=== PATIENT | female | born 1990 | race American Indian/Alaskan Native ===

== ENCOUNTER 2016-06-26 11:30 | Inpatient (IN) | payer MEDICAID, OTHER ==
--- NOTE | 2016-07-21 08:30 | History and Physical Report ---
History of Present Illness Date of examination: 07/21/16 Chief complaint: scheduled section and bilateral tubal ligation History of present illness: Pt is a 26 year old -Nepalese female ELIA 07/29/16 at 39w0d who presents for scheduled section with bilateral tubal ligation secondary to previous x 2 and undesired fertility. She reports irregular contractions, and denies vaginal bleeding or leakage of fluid. She has had care at [facility] since 27wks complicated by late entry to care, glucose intolerance with normal 3 hr GTT. Past History Past Medical History: no pertinent history Past Surgical History: section (2011, 2015) Family/Genetic History: cancer Social history: no significant social history - Obstetrical History Expected Date of Delivery: 07/29/16 Actual Gestation: 38 Week(s) 6 Day(s) : 3 Para: 2 Hx # Term Pregnancies: 2 Number of Pregnancies: 0 Spontaneous Abortions: 0 Induced : 0 Number of Living Children: 2 Medications and Allergies Allergies Allergy/AdvReac Type Severity Reaction Status Date / Time No Known Allergies Allergy Unverified 03/26/16 16:16 Home Medications Medication Instructions Recorded Confirmed Last Taken Type Ferrous Sulfate [Feosol 325 MG tab] 325 mg PO BID #60 tablet 06/28/15 Unknown Rx Ibuprofen [Motrin 800 MG tab] 800 mg PO Q8H PRN #30 tablet 06/28/15 Unknown Rx Vit-Fe Fumar-FA [ 1 each PO QDAY #30 tablet 06/28/15 Unknown Rx Vitamin] oxyCODONE /ACETAMINOPHEN [Percocet 1 tab PO Q6H PRN #30 tablet 06/28/15 Unknown Rx 5/325 mg] Tobramycin 0.3% [Tobrex] 1 drop OD Q8HR #20 ml 03/26/16 Unknown Rx Review of Systems All systems: negative - Physical Exam Breasts: Positive: deferred Cardiovascular: Regular rate Lungs: Positive: Clear to auscultation Abdomen: Positive: soft (gravid ) Uterus: Positive: enlarged (gravid ) Extremities: Positive: normal - Obstetrical FHR: auscultation normal Uterine Contraction Monitor Mode: External Uterine Contraction Pattern: Absent Uterine Tone Measurement Phase: Resting Results All other labs normal. Assessment and Plan A: IUP at 39w0d Previous section x 2 Undesired Fertility P: Proceed with repeat section, bilateral tubal ligation and other indicated procedures.
[2016-07-22] MEDS ORDERED: PEPCID IV SCH (05:00)
[2016-07-22] MEDS ORDERED: ANCEF/STERILE WATER 2 GM/20 ML 2 GM/20 ML SYRINGE IV NR (05:00)
[2016-07-22] MEDS ORDERED: EMLA TP PRN (05:00)
[2016-07-22] MEDS ORDERED: LACTATED RINGERS 1,000 ML IV SCH (05:00)
[2016-07-22] MEDS ORDERED: REGLAN IV SCH (05:00)
[2016-07-22] MEDS ORDERED: PITOCin/NS 20 UNIT/1000ML DRIP 20 UNITS/1,000 ML BAG IV SCH ×2 (05:00→11:45)
[2016-07-22] MEDS ORDERED: BICITRA PO SCH (05:00)
[2016-07-22 06:34] LABS: Basophils % (Auto) 0.4 % (0.0-1.8); Eosinophils % (Auto) 0.8 % (0.0-4.3); Hematocrit 29.3 % (30.3-42.9); Mean Corpuscular HGB Conc 34 % (30-34); Mean Corpuscular Hemoglobin 32 pg (28-32); Mean Corpuscular Volume 94 fl (79-97); Platelet Count 215 K/mm3 (140-440); Red Cell Distribution Width 13.6 % (13.2-15.2)
--- NOTE | 2016-07-22 07:24 | Anesthesia Consultation ---
Anesthesia Consult and Med Hx Date of service: 07/22/16 - Airway Anesthetic Teeth Evaluation: Good ROM Head & Neck: Adequate Mental/Hyoid Distance: Adequate Mallampati Class: Class II Intubation Access Assessment: Probably Good - Pre-Operative Health Status ASA Pre-Surgery Classification: ASA2 Proposed Anesthetic Plan: Epidural, Spinal - Pulmonary Hx Asthma: No - Cardiovascular System Hx Hypertension: No - Central Nervous System Hx Seizures: No Hx Psychiatric Problems: No - Endocrine Hx Renal Disease: No Hx Hypothyroidism: No Hx Hyperthyroidism: No - Hematic Hx Anemia: Yes (current) Hx Sickle Cell Disease: No - Other Systems Hx Alcohol Use: No
--- NOTE | 2016-07-22 07:25 | Anesthesia Day of Surgery ---
Anesthesia Day of Surgery - Day of Surgery Patient Examined: Yes Patient H&P Reviewed: Yes Patient is NPO: Yes
[2016-07-22] MEDS ORDERED: ANCEF/STERILE WATER 2 GM/20 ML IV ONE (07:38)
[2016-07-22] MEDS ORDERED: WATER FOR IRRIG STERILE IR ONE (07:40)
[2016-07-22] MEDS ORDERED: NACL 0.9% IR ONE (07:40)
[2016-07-22] MEDS ORDERED: MORPHINE ONE (07:43)
[2016-07-22] MEDS ORDERED: ZOFRAN IV PRN ×2 (08:00→11:45)
[2016-07-22] MEDS ORDERED: DILAUDID IV PRN (08:00)
[2016-07-22] MEDS ORDERED: NARCAN 0.4 MG/1 ML IV PRN ×2 (08:00→11:45)
[2016-07-22] MEDS ORDERED: BENADRYL IV PRN (08:00)
[2016-07-22] MEDS ORDERED: SODIUM CHLORIDE FLUSH SYRINGE 10 ML IV NR ×2 (08:00→11:45)
[2016-07-22] MEDS ORDERED: ZOFRAN ONE (08:50)
[2016-07-22] MEDS ORDERED: VERSED ONE (09:08)
[2016-07-22] MEDS ORDERED: DILAUDID ONE (09:11)
[2016-07-22] MEDS ORDERED: NACL 0.9% 1000 ML 1,000 ML ONE (09:29)
--- NOTE | 2016-07-22 09:53 | Procedure Note ---
OB Delivery Note - Delivery Date of Delivery: 07/22/16 Surgeon: KASSANDRA MCBRIDE Estimated blood loss: other (800 mL) - Section Preop diagnosis: repeat , desires sterilization Postop diagnosis: same section procedure: section, repeat low transverse, bilateral tubal ligation Disposition: PACU Complications: none Narrative: Please see operative note. - A at 1 minute: 8 at 5 minutes: 9 Gender: Female (3492g (7lb 11 oz))
--- NOTE | 2016-07-22 10:03 | Operative Report ---
Operative Report Operative Report: Date of procedure: July 22, 2016 Preoperative diagnosis: 1) IUP at 39w0d 2) Previous x 2 3) Undesired Fertility Postoperative diagnosis: Same Procedure: 1) Repeat low transverse section 2) Bilateral tubal ligation via [place] method Surgeon: Shanthi Calderon M.D. Anesthesia: Spinal Findings: 1) Viable female , Apgars 8 and 9, weight 3492g, (7 lb 11 oz) 2) Normal-appearing uterus ovaries and tubes Estimated blood loss: 800 mL IV fluids: 1900 mL Urine output: 150 mL, clear at the end of the procedure Drains: Doss to gravity Specimens: Bilateral tubal segments to pathology Complications: None Disposition: Stable to PACU Indication for procedure: Pt is a 26 year old at 39w0d with a h/o previous x 2 who presents for repeat section and bilateral tubal ligations Operation in detail: After the risks, benefits, alternatives and complications were explained to the patient she gave informed consent for the procedure. She was subsequently taken to the operating room where spinal anesthesia was noted to be adequate. She was subsequently placed in the dorsal supine position with leftward tilt and prepped and draped in a normal sterile fashion. heart tones were noted to be in the 135 s prior to incision. A timeout was performed. A Pfannenstiel skin incision was made with the knife and carried down to the layer of the fascia with the Bovie. The fascia was incised in the midline and the fascial incision was extended bilaterally with the Bovie. Attention was then turned to the superior aspect of the incision which was grasped with two Kochers, tented up, and dissected off the rectus muscles. Attention was then turned to the inferior aspect of the incision which was grasped with two Kochers , tented up and dissected off the rectus muscles. The rectus muscles were then in the midline. The peritoneum was then entered sharply between 2 Allis clamps. The peritoneal incision was extended with good visualization of the bladder. The peritoneal incision was then stretched. An Barry self- retaining retractor was placed for visualization. The bladder blade was placed. The vesicouterine peritoneum was grasped with smooth pickups and incised with Metzenbaum scissors. Metzenbaum scissors were used to extend the incision bilaterally. The bladder flap was then created digitally and the bladder blade was replaced. A transverse incision was made in the lower uterine segment with a knife and extended bilaterally with the bandage scissors. The head was delivered without difficulty followed by shoulders and body. was bulb suctioned at delivery. The cord was clamped and cut and the was handed to NICU staff in attendance. Cord blood was collected. The placenta was then delivered manually. The uterus was then exteriorized and cleared of all clots and debris. The hysterotomy was then reapproximated with 0 Vicryl in a running locked fashion. A second layer of the same suture was used in imbricating fashion. Attention was then turned to the tubal ligation. The right tube was identified and followed to to the fimbriae. The tube was then grasped with a Michael and ligated via the [place] method. An additional stitch of 3-0 Vicryl was used to obtain hemostasis. Attention was then turned to the left tube which in a similar fashion was followed down to the fimbriae, grasped with a [place], and ligated in via the [place] method. Hemostasis was noted. Surgicel was placed over the remaining tubal segments. The hysterotomy was inspected and hemostasis was noted. The uterus was then returned to the peritoneal cavity. All instruments were removed from the abdominal cavity. The gutters were irrigated and cleared of all clots and debris. The hysterotomy was again inspected and noted to be hemostatic. Surgicel was then placed over the hysterotomy. The rectus muscles and peritoneum were then reapproximated with 2-0 Vicryl in a running fashion. The fascia was reapproximated with 0 Vicryl in a running fashion. The skin was closed with 4-0 Vicryl in a subcutaneous fashion. The incision was then covered with steri strips and a pressure dressing. The procedure was then ended. The patient tolerated the procedure well and was taken to the PACU in stable condition. All instrument, lap, and needle counts were correct 3.
[2016-07-22] MEDS ORDERED: MORPHINE IV PRN ×2 (11:45)
[2016-07-22] MEDS ORDERED: TUCKS PAD TP PRN (11:45)
[2016-07-22] MEDS ORDERED: TORADOL IV PRN (11:45)
[2016-07-22] MEDS ORDERED: D5LR 1,000 ML IV SCH (11:45)
[2016-07-22] MEDS ORDERED: LANSINOH TP PRN (11:45)
[2016-07-22] MEDS ORDERED: MYLICON PO PRN (11:45)
[2016-07-22] MEDS: ANCEF/NS 1 GM/50 ML 1 GM/50 ML BAG IV SCH ×2 (14:28→22:13)
[2016-07-22] MEDS: MILK OF MAGNESIA PO SCH ×2 (14:32→22:03)
[2016-07-22] MEDS: BENADRYL IV PRN (16:55)
[2016-07-22] MEDS: FEOSOL PO SCH (22:11)
[2016-07-22] MEDS: PERCOCET 5/325 PO PRN (22:11)
[2016-07-22 22:48] LABS: Hematocrit 27.2 % (30.3-42.9); Hemoglobin 9.4 gm/dl (10.1-14.3)
[2016-07-23] MEDS: BENADRYL IV PRN (03:42)
[2016-07-23] MEDS: MOTRIN PO PRN ×3 (03:45→18:00)
[2016-07-23] MEDS: PERCOCET 5/325 PO PRN ×5 (04:40→22:25)
[2016-07-23] MEDS ORDERED: BENADRYL PO PRN (07:52)
--- NOTE | 2016-07-23 07:55 | Progress Note ---
Assessment and Plan A: POD#1 s/p repeat with tubal ligation at term; Asymptomatic anemia P: Abdominal binder. Bowel regimen. Routine postoperative care. Encourage ambulation. Subjective - Subjective Date of service: 07/23/16 Principal diagnosis: s/p repeat with tubal ligation Interval history: Pt reports poor pain control overnight. No other overnight events. Patient reports: appetite normal, ambulating normally (minimally ), no voiding normally (casanova recently removed ), no flatus, no bowel movement : doing well, bottle feeding Objective - Vital Signs Latest vital signs: Vital Signs Temp Pulse Pulse Resp BP BP Pulse Ox 07/23/16 04:00 98.6 F 74 22 133/77 07/23/16 00:00 98.6 F 82 22 122/70 07/22/16 19:40 98.6 F 84 16 127/62 07/22/16 15:30 98.3 F 77 20 127/68 07/22/16 11:35 97.6 F 69 20 125/66 07/22/16 11:15 97.7 F 64 14 124/55 95 07/22/16 11:00 68 14 131/55 99 07/22/16 10:45 76 14 111/65 99 07/22/16 10:20 69 14 85/49 99 07/22/16 10:15 59 L 14 83/31 99 07/22/16 10:10 6 L 14 107/70 98 07/22/16 10:05 59 L 18 105/40 98 07/22/16 10:00 97.5 F L 64 16 106/64 99 07/22/16 09:55 97.5 F L 64 12 94/35 99 07/22/16 08:40 97.5 F L 64 12 94/35 99 Intake and Output 07/22/16 07/23/16 07/23/16 22:59 06:59 14:59 Intake Total 1715 1400 Output Total 800 1600 Balance 915 1400 -1600 Intake: IV 415 500 ANCEF/NS 1 GM/50 ML 1 gm 40 In 50 ml @ 100 mls/hr IV Q8H KENZIE Rx#:[id number] 1,000 ml @ 125 mls/ 375 500 hr IV DIRECT KENZIE Rx#: [id number] Oral 1000 400 Intake, Free Water 300 500 Output: Urine 800 1600 Indwelling Catheter 400 Void 400 1600 Other: Total, Intake Amount 400 400 Total, Output Amount 400 1600 # Voids Void 0 3 - Exam Breasts: Present: deferred Cardiovascular: Present: Regular rate Lungs: Present: Clear to auscultation Abdomen: Present: soft, distention (moderate ), abnormal bowel sounds ( hypoactive ) Uterus: Present: fundal height at umbilicus Extremities: Present: normal Incision: Present: dressed - Labs Labs: Abnormal lab results 07/22/16 Range/Units 22:20 Hgb 9.4 L (10.1-14.3) gm/dl Hct 27.2 L (30.3-42.9) %
[2016-07-23] MEDS ORDERED: M-M-R II VACCINE SUB-Q ONE (10:05)
[2016-07-23] MEDS ORDERED: BOOSTRIX IM ONE (10:05)
--- NOTE | 2016-07-23 10:15 | Progress Note ---
Subjective Date of service: 07/23/16 Principal diagnosis: s/p repeat with tubal ligation Interval history: 1st POD after Patient is in the bed, comfortable. Pain is well controlled with pain meds. Some pruritus. Ambulated. No nausea or vomiting. No anesthesia complications Objective - Constitutional Vitals: Vital Signs - 12hr 07/23/16 07/23/16 07/23/16 00:00 04:00 08:18 Temperature 98.6 F 98.6 F 98.4 F Pulse Rate [ 82 74 Left From Monitor] Pulse Rate [ 80 Left Radial] Respiratory 22 22 20 Rate Blood Pressure 122/70 133/77 118/60 [Left Arm] - Labs CBC & Chem 7: 07/22/16 22:20 Labs: Abnormal lab results 07/22/16 Range/Units 22:20 Hgb 9.4 L (10.1-14.3) gm/dl Hct 27.2 L (30.3-42.9) %
[2016-07-23] MEDS: MILK OF MAGNESIA PO SCH (12:05)
[2016-07-23] MEDS: FEOSOL PO SCH ×2 (12:05→22:10)
[2016-07-24] MEDS: PERCOCET 5/325 PO PRN ×4 (03:00→20:15)
--- NOTE | 2016-07-24 08:25 | Progress Note ---
Assessment and Plan POD#1 s/p Repeat c/s with BTL slightly distended but passing gas ambulating well tolerating diet lochia decreasing will consdier d/c home tomorrow implement walking and ambulating and continue milk of mag Subjective - Subjective Date of service: 07/24/16 Principal diagnosis: s/p repeat with tubal ligation Patient reports: appetite normal, voiding normally, pain well controlled, ambulating normally : doing well Objective - Vital Signs Latest vital signs: Vital Signs Temp Pulse Resp BP 07/24/16 01:00 98.1 F 69 20 136/68 07/23/16 16:54 98.2 F 76 20 128/60 Intake and Output 07/23/16 07/24/16 07/24/16 22:59 06:59 14:59 Intake Total 240 850 Balance 240 850 Intake: Oral 240 Intake, Free Water 850 Other: Total, Intake Amount 240 # Voids Void 1 3 - Exam Breasts: Present: normal Cardiovascular: Present: Regular rate, Normal S1, Normal S2 Lungs: Present: Clear to auscultation, Normal air movement Abdomen: Present: normal appearance, soft, distention Vulva: both: normal Uterus: Present: normal, firm, fundal height below umbilicus. Absent: bogginess , tenderness Extremities: Present: normal Deep Tendon Reflex Grade: Normal +2
[2016-07-24] MEDS: MILK OF MAGNESIA PO SCH ×2 (12:18→20:18)
[2016-07-24] MEDS: MOTRIN PO PRN (12:19)
[2016-07-24] MEDS: FEOSOL PO SCH (12:19)
[2016-07-25] MEDS: FEOSOL PO SCH (00:25)
[2016-07-25] MEDS: PERCOCET 5/325 PO PRN ×2 (01:11→08:14)
[2016-07-25] MEDS: MOTRIN PO PRN (04:59)
--- NOTE | 2016-07-25 07:27 | Progress Note ---
Assessment and Plan POD#3 s/p Repeat c/s with BTL passing gas and bm ambulating well tolerating diet lochia decreasing patient met criteria for d/c f/u in 2 weeks for incision check A+ no rhogam indicated bottle feeding undecided about control Subjective - Subjective Date of service: 07/25/16 Principal diagnosis: s/p repeat with tubal ligation Patient reports: appetite normal, voiding normally, pain well controlled, flatus , bowel movement, ambulating normally [place]: doing well, bottle feeding Objective - Vital Signs Latest vital signs: Vital Signs Temp Pulse Resp BP 07/25/16 04:59 18 07/25/16 01:11 18 07/25/16 00:28 98.4 F 72 20 142/69 07/24/16 21:00 18 07/24/16 20:15 18 07/24/16 16:02 98.4 F 74 15 124/57 07/24/16 08:00 98.3 F 74 16 145/65 Intake and Output 07/24/16 07/25/16 07/25/16 22:59 06:59 14:59 Intake Total 480 360 Balance 480 360 Intake: Oral 480 Intake, Free Water 360 Other: Total, Intake Amount 120 Voiding Method Toilet # Voids Void 1 2 - Exam Breasts: Present: normal Cardiovascular: Present: Regular rate, Normal S1, Normal S2 Lungs: Present: Clear to auscultation, Normal air movement Abdomen: Present: normal appearance, soft, normal bowel sounds Vulva: both: normal Uterus: Present: normal, firm, fundal height below umbilicus (2cm). Absent: bogginess, tenderness Extremities: Present: normal Deep Tendon Reflex Grade: Normal +2 Incision: Present: normal, dry, intact
--- NOTE | 2016-07-25 07:29 | Discharge Summary ---
Providers - Providers Date of Admission: 07/22/16 05:57 Date of discharge: 07/25/16 Attending physician: KASSANDRA MCBRIDE 07/22/16 11:45 Consult to [employer] [employer] [CONS] Routine Reason For Exam: Primary care physician: [facility] Hospitalization Reason for admission: section Delivery: Procedure: repeat low transverse Episiotomy: none Laceration: none Incision: normal, dry, intact Other procedures: none complications: none Discharge diagnosis: IUP at term delivered baby: female Condition at discharge: Good Disposition: DISCHARGED TO HOME OR SELFCARE Plan - Discharge Medications Prescriptions: Ferrous Sulfate [Feosol 325 MG tab] 325 mg PO BID #60 tablet Ferrous Sulfate [Feosol 325 MG tab] 325 mg PO BID #30 tablet Ibuprofen [Motrin] 600 mg PO Q8H PRN #60 tablet PRN Reason: Pain Ibuprofen [Motrin] 800 mg PO Q8HR PRN #60 tablet PRN Reason: Pain oxyCODONE /ACETAMINOPHEN [Percocet 5/325] 1 tab PO Q6HR PRN #40 tablet PRN Reason: Pain oxyCODONE /ACETAMINOPHEN [Percocet 5/325] 1 tab PO Q6HR PRN #40 tablet PRN Reason: Pain Vit-Fe Fumar-FA [ Vitamin] 1 tab PO QDAY #30 tablet Vit-Fe Fumar-FA [ Vitamin] 1 tab PO QDAY #60 tablet - Provider Discharge Summary Activity: no sex for 6 weeks, no heavy lifting 4 weeks, no strenuous exercise Diet: routine Instructions: routine Additional instructions: [] Smoking cessation referral if applicable(refer to patient education folder for contact #) [] Refer to [facility] Booklet Call your doctor immediately for: * Fever > 100.5 * Heavy vaginal bleeding ( >1 pad per hour) * Severe persistent headache * Shortness of breath * Reddened, hot, painful area to leg or breast * Drainage or odor from incision. * Keep incision clean and dry at all times and follow doctor's instructions regarding bathing/showering - Follow up plan Follow up: PRECIOUS MUÑOZ MD [Staff Physician] - 7 Days PRIMARY CARE, [Primary Care Provider] - 14 Days Forms: Discharge Signature Page
[2016-07-25 08:50] VITALS: BP 147/70
== END 2016-07-25 11:05 | disposition home or self-care (01) | DRG 766 ==
LOC: APU 07-22 05:57 → OB 07-22 11:34
PROVIDERS: ADMIT Obstetrics & Gynecology; ATTEND Obstetrics & Gynecology
PROC: 10D00Z1 Extraction of Products of Conception, Low, Open Approach (ICD-10-PCS; principal; 2016-07-22)
PROC: 0UL70ZZ Occlusion of Bilateral Fallopian Tubes, Open Approach (ICD-10-PCS; 2016-07-22)
DX: O99.02 Anemia complicating childbirth (principal); O34.211 Maternal care for low transverse scar from previous cesarean delivery; Z3A.39 39 weeks gestation of pregnancy; Z37.0 Single live birth; D64.9 Anemia, unspecified
CPT/HCPCS: 36415; 85014; 85018; 85025; 86850; 86900; 86901; 88302; J0690; J1170; J1200; J1885; J2250; J2270; J2405; J2590; J2765; J7030; J7120; J7121

== ENCOUNTER 2022-01-24 04:31 | Emergency (ER) | payer MEDICAID, OTHER ==
[2022-01-24] MEDS ORDERED: FLUORESCEIN 1 MG STRIP OP ONE ×2 (09:19→09:21)
[2022-01-24] MEDS: TETRACAINE 0.5% OPHTH SOLN 4ML OU SCH ×2 (09:34→09:38)
--- NOTE | 2022-01-24 10:01 | Emergency Department Report ---
Eye Injury/Foreign Body - HPI Duration: 1 Day Eye Location: Right Severity: Moderate Tetanus Status: Up to Date Eye Symptoms: Eye Pain: Yes, Blurred Vision: Yes, Eye Redness: Yes, Grinding/Hammering Metal: No, Contact Lens Use: No, Recalls Injury: No, Photophobia: Yes ED Review of Systems ROS: Stated complaint: EYE Other details as noted in HPI Comment: All other systems reviewed and negative Constitutional: denies: chills, fever Eyes: eye pain, eye discharge, vision change ENT: denies: ear pain, throat pain Respiratory: denies: cough, shortness of breath, wheezing Cardiovascular: denies: chest pain, palpitations Endocrine: no symptoms reported Gastrointestinal: denies: abdominal pain, nausea, diarrhea Genitourinary: denies: urgency, dysuria, discharge Musculoskeletal: denies: back pain, joint swelling, arthralgia Skin: denies: rash, lesions Neurological: denies: headache, weakness, paresthesias Psychiatric: denies: anxiety, depression Hematological/Lymphatic: denies: easy bleeding, easy bruising ED Past Medical Hx - Past Medical History Hx Hypertension: No Hx Congestive Heart Failure: No Hx Diabetes: No Hx Deep Vein Thrombosis: No Hx Renal Disease: No Hx Sickle Cell Disease: No Hx Seizures: No Hx Asthma: No Hx COPD: No Hx HIV: No - Surgical History Past Surgical History?: Yes Additional Surgical History: C section x2 - Social History Smoking Status: Unknown if ever smoked Substance Use Type: None - Medications Home Medications: Home Medications Medication Instructions Recorded Confirmed Last Taken Type Ferrous Sulfate [Feosol 325 MG tab] 325 mg PO BID #60 tablet 06/28/15 07/24/16 07/22/16 09:00 Rx Ibuprofen [Motrin 800 MG tab] 800 mg PO Q8H PRN #30 tablet 06/28/15 07/24/16 Unknown Rx Vit-Fe Fumar-FA [ 1 each PO QDAY #30 tablet 06/28/15 07/24/16 07/22/16 09:00 Rx Vitamin] oxyCODONE /ACETAMINOPHEN [Percocet 1 tab PO Q6H PRN #30 tablet 06/28/15 07/24/16 Unknown Rx 5/325 mg] Tobramycin 0.3% [Tobrex] 1 drop OD Q8HR #20 ml 03/26/16 07/24/16 Unknown Rx Ferrous Sulfate [Feosol 325 MG tab] 325 mg PO BID #60 tablet 07/22/16 Unknown Rx Ibuprofen [Motrin] 800 mg PO Q8HR PRN #60 tablet 07/22/16 Unknown Rx Vit-Fe Fumar-FA [ 1 tab PO QDAY #30 tablet 07/22/16 Unknown Rx Vitamin] oxyCODONE /ACETAMINOPHEN [Percocet 1 tab PO Q6HR PRN #40 tablet 07/22/16 Unknown Rx 5/325] Ferrous Sulfate [Feosol 325 MG tab] 325 mg PO BID #30 tablet 07/25/16 Unknown Rx Ibuprofen [Motrin] 600 mg PO Q8H PRN #60 tablet 07/25/16 Unknown Rx Vit-Fe Fumar-FA [ 1 tab PO QDAY #60 tablet 07/25/16 Unknown Rx Vitamin] oxyCODONE /ACETAMINOPHEN [Percocet 1 tab PO Q6HR PRN #40 tablet 07/25/16 Unknown Rx 5/325] Ciprofloxacin HCl [Ciloxan] 2 drops OD Q4HR 7 Days #10 ml 01/24/22 Unknown Rx Eye Injury Exam - Exam General: Vital signs noted. No distress. Alert and acting appropriately. - Visual Acuity Right Vision Acuity Degree: 20/50 Eye Exam: Right Injection, Right Mucous Discharge, Right Fluorescein Uptake (Very vague vivas shaped area of uptake over right upper iris area not overlying the pupil), Right Photophobia, Neither Chemosis, Neither Abnormal Pupil, Neither EOMI, Neither Eye Foreign Body, Neither Lid Foreign Body, Neither Purulent Discharge, Neither Fluorescein Uptake (slit lamp) (No slit-lamp available), Neither Cell/Flare (slit lamp) (No slit-lamp available), Neither Corneal Edema ED Course Vital Signs 01/24/22 04:36 Temperature 98.6 F Pulse Rate 60 Respiratory 18 Rate Blood Pressure 127/75 O2 Sat by Pulse 100 Oximetry ED Medical Decision Making - Medical Decision Making Patient was at work and her noticed that her eye was red and irritated and watery. She flushed it out and gradually it became painful and she developed photophobia. Previous corneal abrasions. Tetanus up-to-date. Slit-lamp not available, but tetracaine and fluorescein instilled and there is a very vague area of uptake in a vivas shaped fashion over the upper iris area not involving/overlying the pupil. We will treat with antibiotics and lubricating eyedrops at night. Follow-up with ophthalmology if not 50% better by tomorrow, 75% better by then the following day and 90% better by the third day. - Differential Diagnosis Corneal abrasion. Corneal foreign body. Conjunctivitis. Critical care attestation.: If time is entered above; I have spent that time in minutes in the direct care of this critically ill patient, excluding procedure time. ED Disposition Clinical Impression: Corneal abrasion, right Disposition: HOME / SELF CARE / HOMELESS Is pt being admited?: No Condition: Stable Instructions: Corneal Abrasion Additional Instructions: antibiotics and [id number] lubricating eyedrops at night. Follow-up with ophthalmology if not 50% better by tomorrow, 75% better by then the following day and 90% better by the third day. Prescriptions: Ciprofloxacin HCl [Ciloxan] 2 drops OD Q4HR 7 Days #10 ml Referrals: LEIGHANN CALDWELL MD [Staff Physician] - 3-5 Days Forms: Work/School Release Form(ED) Time of Disposition: 10:15
[2022-01-24] MEDS ORDERED: HYDROcodone/ACETAMINOPHEN 5-325 MG TAB PO ONE (10:17)
[2022-01-24 10:36] VITALS: BP 134/86
== END 2022-01-24 12:02 | disposition home or self-care (01) ==
LOC: ED 04:31
DX: S05.01XA Injury of conjunctiva and corneal abrasion without foreign body, right eye, initial encounter (principal); Z98.890 Other specified postprocedural states; Z79.899 Other long term (current) drug therapy; X58.XXXA Exposure to other specified factors, initial encounter; Y93.89 Activity, other specified; Y92.89 Other specified places as the place of occurrence of the external cause; Y99.8 Other external cause status
CPT/HCPCS: 99282; 99283